=== PATIENT | female | born 1995 | race Caucasian/White ===

== ENCOUNTER 2017-05-22 12:55 | Observation (INO) | payer BC ==
[2017-05-22 13:23] LABS: #Lymphocytes 1.6 thou/uL (1.20-3.40); #Monocytes 1.2 thou/uL (0.11-0.59); #Neutrophils 13.8 thou/uL (1.40-6.50); %Basophils 0.2 % (0.0-1.0); %Lymphocytes 9.8 % (28.0-48.0); %Monocytes 7.1 % (0.0-4.0); Hematocrit 45.5 % (36.0-47.0); Mean Platelet Volume 8.6 fL (7.4-10.4); Red Blood Cell (RBC) Count 4.97 mill/uL (4.00-5.20); White Blood Cell (WBC) Count 16.6 thou/uL (4.8-10.8)
[2017-05-22 13:44] LABS: ALT (SGPT) 14 U/L (8-55); AST (SGOT) 17 U/L (5-34); Alkaline Phosphatase 52 U/L (40-150); Anion Gap 15 mmol/L (10-20); BUN (Urea Nitrogen) 8 mg/dL (7.0-18.7); Bilirubin, Total 0.5 mg/dL (0.2-1.2); Calc. Creatinine Clearance 0 mL/min (70-130); Calcium 10.4 mg/dL (7.8-10.44); Carbon Dioxide 23 mmol/L (22-29); Chloride 100 mmol/L (98-107); Estimated GFR-MDRD 85; Globulin 4.1 g/dL (2.4-3.5)
[2017-05-22] MEDS ORDERED: Ondansetron HCl/PF 4 MG/2 ML Vial ONE ×2 (14:06→19:36)
[2017-05-22 14:45] LABS: Bilirubin Small (Negative); Blood, Urine Trace (Negative); Glucose, Urine (Dipstick) Negative (Negative); Ketone, Urine 40 mg/dL (Negative); Nitrite Negative (Negative); Protein, Urine (Dipstick) 30 mg/dL (Neg-Trace)
[2017-05-22 14:48] LABS: Bacteria/HPF Rare-Few HPF (None Seen); Squamous Epithelial 0-3 HPF (0-3)
[2017-05-22 15:05] LABS: Hyaline Casts/LPF 0-3 HYALINE CAST LPF (0-3 Hyaline)
[2017-05-22] MEDS ORDERED: Dextrose 5% in Water 1,000 ML IV PRN (15:32)
[2017-05-22] MEDS ORDERED: Dextrose 50% Abboject 50 ML SYRINGE SLOW IVP PRN (15:32)
[2017-05-22] MEDS ORDERED: Ondansetron HCl/PF 4 MG/2 ML Vial IVP PRN (15:32)
--- NOTE | 2017-05-22 15:38 | CT ---
CT OF THE ABDOMEN AND PELVIS WITH IV CONTRAST: INDICATION: Abdominal pain for 2 days; was seen in urgent care yesterday with diagnosis of a stomach virus. The patient reports nausea and fever. The patient reports the pain has moved from the center of her ab domen now to the right aspect of her abdomen, predominantly in the right lower quadrant. FINDINGS: The appendix is not definitely visualized. There are numerous unopacified bowel loops seen within t he lower abdomen limiting image detail. No definite drainable fluid collection is grossly evident. Lung bases, liver, spleen, pancreas, and adrenal glands appear within normal limits. The kidneys ar e normal-appearing. There is circumaortic left renal vein. No enlarged lymph nodes or free fluid is evident. There is no evidence of bowel obstruction. There is a mild amount of retained stool within the colon. The bladder is decompressed. No acute osseous abnormality is evident. IMPRESSION: 1. Nonvisualization of the appendix. Multiple unopacified bowel loops within the pelvis limit imag e detail. If there is clinical concern, a repeat CT of the abdomen and pelvis with IV and enteric c ontrast may be helpful. 2. Other findings as above. POS: [facility]
[2017-05-22] MEDS ORDERED: Ertapenem 1 GM in Sodium Chloride 0.9% 100 ML IVPB SCH (16:00)
--- NOTE | 2017-05-22 16:14 | HP ---
DATE OF ADMISSION: 05/22/2017 HISTORY OF PRESENT ILLNESS: A 22-year-old woman presented to emergency department. The patient gives a history of insidious onset periumbilical abdominal pain, which awoke her from sleep at approximately 0500 hours yesterday. Pain was described as sharp without radiation. The patient's pain was associated with multiple episodes of nausea and nonbilious emesis. The patient reports some chills overnight. The pain has since settled in the right lower quadrant where it has persisted since last night. She is anorexic. She denies any diarrhea. She denies any dyspnea or syncope. PAST MEDICAL HISTORY: Unremarkable except for acne. SURGICAL HISTORY: The patient denies any previous surgeries. 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 She denies any cigarette smoking, ethanol or illicit drug abuse. FAMILY HISTORY: Patient denies any family history of diabetes mellitus, hypertension, heart disease or cancer. She denies any family history of gastrointestinal disorders including inflammatory bowel disease. CURRENT MEDICATIONS: None except for oral control pills. ALLERGIES: Patient denies any known drug allergies. REVIEW OF SYSTEMS: Ten-point review of systems essentially unremarkable except for as stated in past medical history and chief complaint. PHYSICAL EXAMINATION: GENERAL: This reveals a 22-year-old normally developed woman who is otherwise coherent and interactive and appears stated age. The patient is alert and oriented x3. She appears to be in no acute distress at the time of my evaluation. VITAL SIGNS: Includes blood pressure is 127/68, pulse 105, respiratory rate 16 , temperature 99.5 degrees Fahrenheit. Oxygen saturation is 97% on room air. HEENT: Reveals normocephalic and atraumatic. Pupils are equal, round, and reactive to light and accommodation. Extraocular muscles are intact bilaterally. She has no sclerae icterus present. HEART: Reveals regular rate with sinus tachycardia. No murmurs or gallops auscultated. LUNGS: Clear to auscultation bilaterally. Her breathing is regular and unlabored. ABDOMEN: Soft and nondistended. She has right lower quadrant tenderness at McBurney's point. She has a positive Rovsing sign. Liver and spleen are nonpalpable below costal margins. EXTREMITIES: Reveal 2+ radial and pedal pulses bilaterally. No ankle edema is present. NEUROLOGIC: Reveals no focal deficits present. PERTINENT LABORATORY FINDINGS: Today includes a CBC with 16,600 white blood cells, hemoglobin 15.3, hematocrit is 45.5 and platelet count is 280,000. Metabolic profile: Sodium 134, potassium is 3.5, chloride is 100, bicarbonate 23, BUN 8, creatinine 0.85, glucose 80, total bilirubin 0.5, AST and ALT normal at 17 and 14 respectively. Alkaline phosphatase is also normal at 52. Serum test is negative. I have reviewed the CT scan of the abdomen and pelvis, which shows poorly visualized appendix. There is a right lower quadrant fat stranding in the anatomic position of the appendix. There is no pneumoperitoneum or free fluid noted. IMPRESSION: Acute appendicitis with localized peritonitis. RECOMMENDATIONS: Laparoscopic appendectomy. I have informed the patient of the above findings and recommendations. I have also advised the patient of the risks and benefits of the proposed surgery. Risks include, but not limited to bleeding, infection, injury to surrounding structures. This information was given to the patient in the presence of her nurse. The patient indicates understanding of the information given. I have answered all questions. The patient has granted consent for this admission and surgical intervention. ELVIA
[2017-05-22] MEDS ORDERED: ISOVUE-370 76%-LOCM 1 ML ONE (16:36)
[2017-05-22] MEDS ORDERED: Fentanyl 100 MCG/2 ML VIAL ONE (16:53)
[2017-05-22] MEDS ORDERED: Midazolam HCl 2 mg/2 ml Vial ONE ×2 (16:53→18:09)
[2017-05-22] MEDS ORDERED: Lidocaine 1% w/Epinephrine 1:200K 30 ML VIAL ONE (17:02)
[2017-05-22] MEDS ORDERED: Bupivacaine 0.25% HCL 30 ML VIAL ONE (17:02)
[2017-05-22] MEDS ORDERED: Ketorolac Tromethamine 30 MG/ML VIAL ONE (19:36)
[2017-05-22] MEDS ORDERED: Dexamethasone 20 MG/5 ML VIAL ONE (19:36)
[2017-05-22] MEDS ORDERED: Propofol 200 MG/20 ML VIAL ONE (19:36)
[2017-05-22] MEDS ORDERED: Lidocaine 2% PF 10 ML AMP (For Epidural Use) ONE (19:36)
[2017-05-22] MEDS ORDERED: Succinylcholine Chloride 20 MG/ML 10 ml SYRINGE FS ONE (19:36)
[2017-05-22] MEDS ORDERED: Glycopyrrolate 0.2 MG/ML 5 ML SYRINGE ONE (19:36)
[2017-05-22] MEDS ORDERED: traMADol HCl 50 MG TAB PO PRN ×2 (20:21)
[2017-05-22] MEDS: Ketorolac Tromethamine 30 MG/ML VIAL IVP SCH ×2 (23:03→23:30)
[2017-05-22] MEDS: Sodium Chloride 0.9% 1,000 ML IV SCH (23:03)
[2017-05-22] MEDS: Acetaminophen 500 MG TAB PO SCH (23:04)
--- NOTE | 2017-05-22 23:07 | OP ---
DATE OF OPERATION: 05/22/2017 PREOPERATIVE DIAGNOSIS: Acute appendicitis. POSTOPERATIVE DIAGNOSIS: Acute appendicitis. OPERATION PERFORMED: Laparoscopic appendectomy. SURGEON: Vinny Shea DO ANESTHESIA: General endotracheal. ESTIMATED BLOOD LOSS: Less than 5 mL FLUIDS GIVEN: 1000 mL crystalloids. SPONGE AND INSTRUMENT COUNT: Certified as correct x2. COMPLICATIONS: None apparent at the time of operation. INDICATIONS FOR PROCEDURE: A 22-year-old woman presented with insidious onset abdominal pain. Clin ical and radiographic examination was consistent with acute appendicitis for which patient was broug ht to the operating room for appendectomy. Findings are consistent with a suppurative appendix in the usual anatomic location. DESCRIPTION OF PROCEDURE: Informed consent was obtained from the patient who was brought to the ope rating room and placed in supine position. Following general anesthesia, a Pennington catheter was inser allison and placed bedside drain. Abdomen was sterilely prepped and draped in the usual fashion. Skin below the umbilicus was infiltrated with 0.25% Marcaine with epinephrine. A small curvilinear infra umbilical incision was made using an 11 scalpel. Umbilical stalk was grasped with Bijal's and elev ated. Veress needle was inserted through the incision and placed in the peritoneal cavity through w hich the abdomen was insufflated with 2.5 liters of CO2 gas. Intraabdominal pressure was noted at 1 mmHg. Following abdominal insufflation, Veress needle was removed and a 5 mm trocar was introduced using the Visiport under laparoscopy. Laparoscopy confirmed proper placement of the port, no injur ies to underlying structures. Additional laparoscopy revealed the right lower quadrant partially en cased by omental adhesions. Under direct laparoscopy, a 5 mm suprapubic and 12 mm left lower quadra nt ports were placed after the overlying skin was infiltrated with 0.25% Marcaine with epinephrine a nd appropriate incision was made. The patient was placed in a Trendelenburg position, rotated to her left. I introduced a Prestige grasper through the left lower quadrant port site, using this to kristofer ntly take down omental adhesions to reveal the suppurative appendix in the usual anatomic location. I then introduced an Endo Hatley forceps through the suprapubic port site grasping the appendix wh ich was elevated. I used the [place] dissector to create a rent through the mesoappendix at the se. Using an Endo NITHYA with a blue load, appendix was divided at appendicocecal junction. A white l oad Endo NITHYA was then used to divide the mesoappendix at the base. The appendix was delivered of th e abdominal cavity using an EndoCatch. Operative site was inspected for good hemostasis. Finding n o other pathology, the laparoscopy was terminated. Fascia of the left lower quadrant port site was closed using 0 Vicryl suture and Endo closure device under laparoscopy. Abdomen was desufflated. A ll ports and instruments were removed and accounted for. Skin incision was closed using 4-0 Monocry l suture in subcuticular fashion. Dermabond was applied to the incisions. The patient tolerated the operation without any apparent complication and was returned to recovery room in satisfactory condi tion.
[2017-05-22 23:24] VITALS: BMI 21.1
[2017-05-23] MEDS: Sodium Chloride 0.9% 1,000 ML IV SCH (00:36)
[2017-05-23] MEDS: Acetaminophen 500 MG TAB PO SCH ×2 (03:21→08:47)
[2017-05-23] MEDS: Ketorolac Tromethamine 30 MG/ML VIAL IVP SCH (06:48)
[2017-05-23 11:42] VITALS: BP 108/69; TEMP 97.9
[2017-05-23] MEDS ORDERED: Ibuprofen 600 MG TAB PO SCH (14:00)
--- NOTE | 2017-05-23 19:03 | DIS ---
DATE OF ADMISSION: 05/22/2017 DATE OF DISCHARGE: 05/23/2017 ADMITTING PHYSICIAN: Vinny Shea DO ADMITTING DIAGNOSIS: Acute appendicitis. DISCHARGE DIAGNOSIS: Acute appendicitis. OPERATIONS AND PROCEDURES: Laparoscopic appendectomy on 05/22/2017. HISTORY AND HOSPITAL COURSE: A 22-year-old woman, who presented with abdominal pain. Clinical and radiographic examination was consistent with acute appendicitis for which the patient u nderwent an uneventful laparoscopic appendectomy on admission. Postop day #1 today, the patient is ambulating with minimum difficulty. Her pain is adequately cont rolled on oral analgesics. She is tolerating general diet. She is having normal bowel and urinary function. She has remained hemodynamically stable and afebrile through this hospitalization. Clini olman examination today reveals a well woman in good spirits. Abdominal examination reveals intact an d clean incisional wounds. She clearly has no peritoneal signs on examination. The patient will be discharged home today with the following instructions: 1. She sees me in the Surgery Clinic in 2 weeks. 2. She is to avoid weight lifting in excess of 20 pounds until she has been released by me. 3. She may shower, but avoid soaking herself in bathtubs or swimming. 4. She is to call me with any questions or problems including exacerbation of abdominal pain, fever in excess of 101 degrees Fahrenheit, or intolerance to oral intake. 5. She is encouraged to ambulate daily to avoid complications of venous thromboembolism. These instructions were given to the patient in the presence of her mother and her nurse. The patie nt indicated understanding of information given. I answered all questions. The patient and family have expressed gratitude for the care and nurture during this hospitalization and surgery.
== END 2017-05-23 11:42 | disposition home or self-care (01) ==
LOC: ERS 12:55 → SDC 15:50 → SURG A 20:29
PROVIDERS: ADMIT Surgery; ATTEND Surgery
PROC: 0DTJ4ZZ Resection of Appendix, Percutaneous Endoscopic Approach (ICD-10-PCS; principal; 2017-05-23)
DX: K35.80 Unspecified acute appendicitis (principal); Z79.3 Long term (current) use of hormonal contraceptives
CPT/HCPCS: 36415; 74177; 80053; 81003; 81015; 81025; 84703; 85025; 87040; 88304; 96361; 96365; 96375; 96376; G0378; J1100; J1335; J1885; J2001; J2250; J2270; J2405; J2704; J3010; J7050; S0020